=== PATIENT | female | born 1985 | race Two or more races ===

== ENCOUNTER 2024-10-21 05:48 | Emergency (ER) | payer OTHER, SELFPAY ==
[2024-10-21] VITALS (7 sets, daily range): BP systolic 91–125; BP diastolic 51–71; PULSE 69–95; RESP 16; TEMP 36.4–36.9; O2SAT 98–100; BMI 29.1
--- NOTE | 2024-10-21 06:08 | ECG_ITS ---
Test Reason : SYNCOPE Blood Pressure : */* mmHG Vent. Rate : 75 BPM Atrial Rate : 75 BPM P-R Int : 162 ms QRS Dur : 68 ms QT Int : 386 ms P-R-T Axes : 35 57 32 degrees QTcB Int : 431 ms Normal sinus rhythm Normal ECG No previous ECGs available Referred By: Generic ED Physician Electronically Signed By: HUMA DE DIOS
[2024-10-21 06:21] LABS: MANUAL DIFF FLAG NO
[2024-10-21 06:22] LABS: Hematocrit 32.9 % (37.0-47.0); Hemoglobin 11.4 g/dl (12.0-16.0); Imm Gran Abs Auto 0.02 X10*3/uL (0.00-0.03); Imm Gran Pct Auto 0.3 % (0.0-0.4); Lymphocytes Absolute Auto 2.6 X10*3/uL (1.2-4.9); Mean Corpuscular HGB Conc 34.7 g/dl (31.0-35.0); Mean Corpuscular Hemoglobin 29.1 pg (27.0-33.0); Mean Corpuscular Volume 83.9 fL (80.0-98.0); NRBC Abs Auto 0.000 X10*3/uL (0.0-0.012); NRBC Pct Auto 0.0 /100WBC (0.0-0.2); Platelet Count 248 X10*3/uL (160-400); Red Blood Count 3.92 X10*6/uL (4.20-5.50); White Blood Count 7.2 X10*3/uL (4.8-10.8)
[2024-10-21 06:41] LABS: Alanine Aminotransferase 25 U/L (0-31); Albumin Level 3.8 g/dL (3.5-5.0); Alkaline Phosphatase 32 U/L (39-117); Anion Gap 12 (12-20); Aspartate Amino Transferase 38 U/L (5-31); Blood Urea Nitrogen 16 mg/dL (9-16); Calcium 8.8 mg/dL (8.4-10.2); Carbon Dioxide 25 mmol/L (22-29); Chloride 107 mmol/L (96-108); Creatinine Clr Calc Pharmacy 98.0; Estimated Glomerular Filt Rate > 60; Potassium 3.8 mmol/L (3.3-5.1); Sodium 140 mmol/L (135-145); Total Protein 6.4 g/dL (6.5-8.0); Troponin-I High Sensitivity < 2.7 ng/L (<3.5-17.0)
--- NOTE | 2024-10-21 07:44 | PC.NURSE ---
Pt JAZ. Alert and oriented. Stated on Saturday she did a hyrox, and was sore for a few days afterwards then this morning when she got out of bed her left inner thigh was painful and she had difficulty ambulating to her bathroom. In her bathroom she felt dizzy, nauseous, experienced vision changes and states she isn't sure but believes she passed out. Her called 911. 20 g in left AC by EMS, they also gave Toradol which has provided her some relief. Currently has 4/10 pain in left thigh area. Breathing unlabored, skin p/w/d. Orthos obtained, she reports some dizziness with position change. Denies nausea, chest pain, or shortness of breath. +CSM. Shes on tele. at bedside. Plan of care ongoing.
--- NOTE | 2024-10-21 08:38 | ED_ITS ---
HPI - Syncope General Chief Complaint: Syncope Stated Complaint: left leg pain Time Seen by Provider: 10/21/24 08:08 Source: patient, family and EMS Mode of arrival: EMS Limitations: no limitations History of Present Illness ED Provider: [facility] narrative: 38-year-old woman presenting with syncope, she states she has been physically training quite hard, today she woke up started stretching and felt a pulling in her left anterior thigh, then she started going to the bathroom and felt cool and went down on the ground and then she stood up started going back to bed and at that point she did not really recall what happened, no reports of loss of bowel or bladder function, no history of seizures, prior to the fall she did not have any chest pain palpitations or shortness of breath, she is on control pills, no recent surgeries reported. She is otherwise healthy. Related Data Allergies Allergy/AdvReac Type Severity Reaction Status Date / Time No Known Allergies Allergy Verified 10/21/24 06:05 Review of Systems 2 Constitutional: Constitutional: Reports as per [facility] Social History Social History Smoked in Last 30 Days: No Use of substances other than those prescribed or required for medical reasons: No Advance Directives: No Advance Directives Information Provided: Yes Do you have a plan to hurt others: No Plan Physical Exam 2 Vital Signs: Vital Signs: Last Vital Signs Temp 98.5 F 10/21/24 06:02 Pulse 81 10/21/24 07:35 Resp 16 10/21/24 07:34 BP 125/68 10/21/24 07:35 Pulse Ox 99 10/21/24 07:34 O2 Del Method Room Air 10/21/24 07:34 BMI result Body Mass Index 29.1 Const: Other: * Gen: ?Overall well-appearing patient * HEENT: PERRLA, EOMI, MMM, * Neck: Supple, no LAD * CV: RRR, no obvious murmurs appreciated, radial pulses +2 bilaterally * Resp: ?No wheezing rales rhonchi no stridor moving air well * Abd: ?Bowel sounds are present, no tenderness no rebound no rigidity * MSK: FROM, strength 5/5 all extremities, she has tenderness along her vastus medialis, without any swelling proximally distally, distal pulses intact, good strength bilateral lower extremities * Skin: Warm, dry, intact, * Neuro: ?Alert and oriented x3, moving upper and lower extremities symmetrically, no obvious facial asymmetry noted Medications Administered Discontinued Medications Generic Name Dose Route Start Last Admin Trade Name Belen PRN Reason Stop Dose Admin Sodium Chloride 1,000 mls @ 999 mls/hr 10/21/24 08:45 10/21/24 09:10 Ns IV 10/21/24 09:45 999 mls/hr .Q1H1M JEAN-PAUL Administration Medical Decision Making Medical Decision Making [facility] Narrative: No hypoxia tachycardia to suspect PE, ECG without underlying dysrhythmia, bedside ultrasound without RV strain, pericardial effusion, IVC is completely flat, she was hypotensive on initial presentation, with slightly elevated CK and LFTs suggesting an episode of hypotension with slight shocked of the liver, no CHELSEA, cardiac enzymes unremarkable, we will give fluids, check orthostatics, no indication for any ultrasound of the lower extremities there is really no evidence for DVT I did not feel that further workup for PE is indicated such as D-dimer or CTA of the chest Differential Diagnosis Differential Diagnoses: The differential diagnosis associated with the presentation includes Vasovagal syncope, orthostasis, arrhythmia, DVT, PE, dehydration, rhabdomyolysis Admission/Observation Consideration of admission/observation: Escalation of care including admission/observation considered Lab Data [facility] Lab Attestation statement: I reviewed the patient's lab results. 10/21/24 06:17 10/21/24 06:17 Labs: Lab Results 10/21/24 Range/Units 06:17 WBC 7.2 (4.8-10.8) X10*3/uL RBC 3.92 L (4.20-5.50) X10*6/uL Hgb 11.4 L (12.0-16.0) g/dl Hct 32.9 L (37.0-47.0) % MCV 83.9 (80.0-98.0) fL MCH 29.1 (27.0-33.0) pg MCHC 34.7 (31.0-35.0) g/dl RDW 12.5 (11.0-16.0) % Plt Count 248 (160-400) X10*3/uL MPV 9.3 L (9.4-12.3) fL Immature Gran % (Auto) 0.3 (0.0-0.4) % Neut % (Auto) 57.0 (45-73) % Lymph % (Auto) 35.8 (20-40) % P[place] % (Auto) 4.3 (2-11) % Eos % (Auto) 2.2 (0-4) % Baso % (Auto) 0.4 (0-2) % Lymph # (Auto) 2.6 (1.2-4.9) X10*3/uL P[place] # (Auto) 0.3 (0.1-1.2) X10*3/uL Eos # (Auto) 0.2 (0.0-0.4) X10*3/uL Baso # (Auto) 0.0 (0.0-0.2) X10*3/uL Abs Immat Gran (auto) 0.02 (0.00-0.03) X10*3/uL Absolute Neuts (auto) 4.1 (2.0-8.3) x10*3/uL Absolute Nucleated RBC 0.000 (0.0-0.012) X10*3/uL Nucleated RBC % (auto) 0.0 (0.0-0.2) /100WBC Sodium 140 (135-145) mmol/L Potassium 3.8 (3.3-5.1) mmol/L Chloride 107 (96-108) mmol/L Carbon Dioxide 25 (22-29) mmol/L Anion Gap 12 (12-20) BUN 16 (9-16) mg/dL Creatinine 0.76 (0.5-1.4) mg/dL Estim Creat Clear Calc 98.0 Estimated GFR > 60 Random Glucose 95 (60-115) mg/dL Calcium 8.8 (8.4-10.2) mg/dL Total Bilirubin 0.4 (0.0-1.0) mg/dL AST 38 H (5-31) U/L ALT 25 (0-31) U/L Alkaline Phosphatase 32 L (39-117) U/L Total Creatine Kinase 390 H (26-140) U/L Troponin I High Sens < 2.7 (<3.5-17.0) ng/L Total Protein 6.4 L (6.5-8.0) g/dL Albumin 3.8 (3.5-5.0) g/dL Beta HCG, Quant < 2 mIU/mL Independent Interpretation I performed an independent interpretation of an: EKG (75 beats per minute otherwise normal ECG without dysrhythmia, AV oneal blocks or ST-T changes to suspect underlying ACS, my independent interpretation) Discharge Plan Discharge Clinical Impression: Vasovagal syncope, Dehydration Instructions: Dehydration (DC) Additional Instructions: Evaluated with episodes of syncope, based on my evaluation, your history, your blood work, my ultrasound findings this is most likely due to dehydration, and then when you pull your muscle pain could have contributed to your passing out as well setting of a vagal event with the underlying dehydration. As far as your thigh there is tenderness superficially along the muscle, I recommend ice the area, I would recommend taking anti-inflammatories such as ibuprofen 400 mg every 6 hours around the clock for the next 2 days, you can use Voltaren gel to the area, gentle stretching, and return to activities as we have discussed. Stay well hydrated including electrolyte drinks, follow up with the PCP any worsening symptoms concerns come back to the ER, your workup today included EKG, blood work, there is suggestion of dehydration on blood work, ultrasound as we discussed an EKG was otherwise unremarkable. Stand Alone Forms: Work/School Release Print Language: Maltese
[2024-10-21 10:49] LABS: Appearance Urine Clear; Glucose Urine UA Negative (Negative); PH 8.5 (5.0-9.0); Specific Gravity - Urine 1.010 (1.005-1.025)
== END 2024-10-21 11:50 | disposition home or self-care (01) ==
PROVIDERS: Emergency Provider Emergency Medicine
DX: R55 Syncope and collapse (principal); M79.605 Pain in left leg; E86.0 Dehydration; I95.9 Hypotension, unspecified; Z79.899 Other long term (current) drug therapy
CPT/HCPCS: 36415; 80053; 81001; 82550; 84484; 84702; 85025; 93005; 96360; 99284; 99285

== ENCOUNTER → 2024-10-21 06:08 | Outpatient (BNV) | payer OTHER, SELFPAY | PROVIDERS: Emergency Provider Emergency Medicine; Visit Provider Internal Medicine | DX: R55 Syncope and collapse (principal) | CPT/HCPCS: 93010 ==